=== PATIENT | male | born 1990 | race Caucasian/White ===

== ENCOUNTER 2024-06-07 23:35 | Emergency (ER) | payer OTHER ==
[2024-06-08] MEDS: predniSONE 20 MG Tab PO ONE (00:15)
[2024-06-08] MEDS: Acetaminophen/oxyCODONE 325-5 MG Tab PO ONE (00:15)
== END 2024-06-08 00:27 | disposition home or self-care (01) ==
LOC: JD.ED 23:35
DX: M10.9 Gout, unspecified (principal); Z87.891 Personal history of nicotine dependence
CPT/HCPCS: 99283; A9270; J7512